=== PATIENT | female | born 1950 | race African-American/Black ===

== ENCOUNTER → 2017-08-19 | Outpatient (CLI) | payer BC, MEDICARE ==
[~2017-08-19] MED LIST: REGADENOSON 0.4 MG/5 ML IV ONE
== END | disposition home or self-care (01) ==
LOC: NM 06:54
PROVIDERS: ATTEND Internal Medicine Clinical Cardiac Electrophysiology
DX: I10 Essential (primary) hypertension (principal); R06.02 Shortness of breath
CPT/HCPCS: 78452; 93017; A9500; C1893; J2785

== ENCOUNTER 2017-09-28 15:30 | Emergency (ER) | payer BC, MEDICARE ==
[~2017-09-28] VITALS: Ht 170.2 cm; Wt 104.0 kg
[2017-09-28] MEDS ORDERED: IBUPROFEN 400MG TABLET PO ONE (16:30)
[2017-09-28] MEDS ORDERED: OXYCODONE HCL/ACETAMINOPHEN 5/325MG TABLET PO ONE (16:30)
[2017-09-28 19:03] VITALS: BP 123/66
== END 2017-09-28 19:00 | disposition home or self-care (01) ==
LOC: ER 15:30
DX: R60.0 Localized edema (principal); M96.89 Other intraoperative and postprocedural complications and disorders of the musculoskeletal system; R06.02 Shortness of breath; I10 Essential (primary) hypertension; Z96.652 Presence of left artificial knee joint; Z95.1 Presence of aortocoronary bypass graft; Y83.8 Other surgical procedures as the cause of abnormal reaction of the patient, or of later complication, without mention of misadventure at the time of the procedure
CPT/HCPCS: 93971; 99284